=== PATIENT | female | born 1955 | race Caucasian/White ===

== ENCOUNTER 2025-03-23 14:40 | Outpatient (CLI) | payer MEDICARE | END 2025-03-23 14:41 | disposition home or self-care (01) | LOC: CSHLAB 14:40 | PROVIDERS: ATTEND Obstetrics & Gynecology | DX: Z01.812 Encounter for preprocedural laboratory examination (principal); N81.10 Cystocele, unspecified; N81.6 Rectocele; N36.41 Hypermobility of urethra | CPT/HCPCS: 81003; 85027; 86850; 86900; 86901 ==

== ENCOUNTER 2025-03-26 05:33 | Observation (INO) | payer MEDICARE ==
[2025-03-23 14:47] VITALS: BMI 20.5
[2025-03-23 15:52] LABS: Hematocrit 35.7 % (34.9-44.5); Hemoglobin 11.9 g/dL (12.0-15.5); Mean Corpuscular Hemoglobin 30.1 pg (27.0-33.0); Mean Corpuscular Volume 90.4 fL (81.6-98.3); Platelet Count 283 10x3/uL (150-450); Red Blood Cell (RBC) Count 3.95 10x6/uL (3.90-5.03); White Blood Cell (WBC) Count 5.24 10x3/uL (3.5-10.5)
[2025-03-23 15:56] LABS: Glucose, Urine (Dipstick) Normal (Negative); Leukocyte 25 (Negative); Protein, Urine (Dipstick) Negative (Neg-Trace); Specific Gravity, Urine 1.020 (1.005-1.030)
[2025-03-26] MEDS ORDERED: PROPOFOL 20 ML ONE (06:25)
[2025-03-26] MEDS ORDERED: Rocuronium Bromide 10 MG/ML (10ML VIAL) ONE (06:26)
[2025-03-26] MEDS ORDERED: Ondansetron PF 4 MG/2 ML Vial ONE (06:26)
[2025-03-26] MEDS ORDERED: Bupivacaine HCl 0.5%/Epinephrine 1:200,000/PF 30 ml Vial ONE (06:31)
[2025-03-26] MEDS ORDERED: Lidocaine 2% MPF 10 ML AMP (For Epidural Use) ONE (06:31)
[2025-03-26] MEDS ORDERED: Bupivacaine/Epinephrine 0.25% 30 ML VIAL ONE (06:32)
[2025-03-26] MEDS ORDERED: CEFAZOLIN 2 GM VIAL ONE (06:53)
[2025-03-26] MEDS ORDERED: Acetaminophen 500 MG TAB ONE (06:55)
[2025-03-26] MEDS ORDERED: PHENYLEPHRINE-NS 100 MCG/ML 10 ML SYRINGE ONE (07:30)
[2025-03-26] MEDS ORDERED: Furosemide 20 MG (2 mL) VIAL ONE (09:07)
[2025-03-26] MEDS ORDERED: MINERAL OIL/WHITE PETROLATUM 3.5 GM TUBE ONE (09:59)
[2025-03-26] MEDS ORDERED: Ketorolac Tromethamine 30 MG (1 mL) VIAL ONE (09:59)
[2025-03-26] MEDS ORDERED: SUGAMMADEX SODIUM 200 MG/2 ML VIAL ONE (09:59)
[2025-03-26] MEDS ORDERED: Acetaminophen 325 MG TAB PO PRN (14:55)
[2025-03-26] MEDS ORDERED: Ondansetron PF 4 MG/2 ML Vial IVP PRN (14:59)
[2025-03-26] MEDS ORDERED: Promethazine HCl 25 MG, Admixture Fee 1 EACH in Sodium Chloride 0.9% 50 ML IVPB PRN (15:06)
[2025-03-26] MEDS ORDERED: Benzocaine/Menthol 1 LOZ LOZ PO PRN (15:06)
[2025-03-26] MEDS: Ketorolac Tromethamine 30 MG (1 mL) VIAL IVP SCH (18:17)
[2025-03-26] MEDS: HYDROcodone/Acetaminophen 7.5/325 mg Tablet PO PRN (18:18)
[2025-03-27 04:18] VITALS: TEMP 98.4
[2025-03-27 06:20] LABS: Hematocrit 31.6 % (34.9-44.5); Hemoglobin 10.4 g/dL (12.0-15.5); Mean Corpuscular Hemoglobin 30.0 pg (27.0-33.0); Mean Corpuscular Volume 91.1 fL (81.6-98.3); Platelet Count 195 10x3/uL (150-450); Red Blood Cell (RBC) Count 3.47 10x6/uL (3.90-5.03); White Blood Cell (WBC) Count 8.06 10x3/uL (3.5-10.5)
[2025-03-27 08:27] VITALS: BP 110/61
== END 2025-03-27 10:00 | disposition home or self-care (01) ==
LOC: CSHSDC 05:33 → CSHPED 14:47
PROVIDERS: ADMIT Obstetrics & Gynecology; ATTEND Obstetrics & Gynecology
PROC: 0UT94ZZ Resection of Uterus, Percutaneous Endoscopic Approach (ICD-10-PCS; principal; 2025-03-26)
PROC: 0UT74ZZ Resection of Bilateral Fallopian Tubes, Percutaneous Endoscopic Approach (ICD-10-PCS; 2025-03-26)
PROC: 0UT24ZZ Resection of Bilateral Ovaries, Percutaneous Endoscopic Approach (ICD-10-PCS; 2025-03-26)
PROC: 0JQC3ZZ Repair Pelvic Region Subcutaneous Tissue and Fascia, Percutaneous Approach (ICD-10-PCS; 2025-03-26)
PROC: 0TSD4ZZ Reposition Urethra, Percutaneous Endoscopic Approach (ICD-10-PCS; 2025-03-26)
DX: N72 Inflammatory disease of cervix uteri (principal); N81.10 Cystocele, unspecified; N81.6 Rectocele; N36.41 Hypermobility of urethra; N87.0 Mild cervical dysplasia; N88.8 Other specified noninflammatory disorders of cervix uteri; N83.8 Other noninflammatory disorders of ovary, fallopian tube and broad ligament
CPT/HCPCS: 51992; 57260; 58571; 81003; 85027 ×2; 86850; 86900; 86901; C1771; C1889; J1100; J1580; J1885 ×2; J1940; J2270; J2405; J2550; J2704; J3010 ×2; J3373; S2900; 36415; 88307